=== PATIENT | female | born 1950 | race Hispanic/Latino ===

== ENCOUNTER 2019-10-08 19:53 | Inpatient (IN) | payer OTHER ==
[2019-10-08] MEDS ORDERED: ONDANSETRON 4 MG/2 ML VIAL IV PRN (21:02)
[2019-10-08] MEDS ORDERED: ACETAMINOPHEN 500 MG TAB PO PRN (21:02)
[2019-10-08] MEDS ORDERED: ALBUTEROL INHALER 60 PUFF/8 GM IH PRN (21:07)
[2019-10-08] MEDS ORDERED: NA CHLORIDE 0.9% 1,000 ML IV SCH (22:00)
[2019-10-09] MEDS: dexAMETHasone 10 MG/ML VIAL IV SCH ×3 (00:22→17:16)
[2019-10-09] MEDS ORDERED: ENOXAPARIN 40 MG/0.4 ML SQ SCH (02:00)
[2019-10-09 03:50] VITALS: BMI 23.6
[2019-10-09 06:11] LABS: Absolute Lymphocytes (CBC) 0.5 K/uL (0.7-4.9); Basophils % 0.1 % (0-1.3); Hematocrit 40.1 % (36.0-45.0); MPV 9.4 fL (7.6-11.3); RBC Red Blood Cell Count 4.92 M/uL (3.86-4.86)
[2019-10-09] MEDS: ZINC SULFATE 220 MG CAP PO SCH ×2 (07:55→20:18)
[2019-10-09] MEDS: ASCORBIC ACID 500 MG TABLET PO SCH (07:55)
[2019-10-09 08:00] LABS: Albumin 2.5 g/dL (3.4-5.0); Bilirubin Total 0.6 mg/dL (0.2-1.0); Ferritin 703.3 ng/mL (8-388); Magnesium 2.3 mg/dL (1.8-2.4); Protein, Total 6.9 g/dL (6.4-8.2)
[2019-10-09] MEDS: FUROSEMIDE 20 MG/ 2ML VIAL IV SCH (08:03)
--- NOTE | 2019-10-09 08:28 | P.HP ---
Certification for Inpatient Patient admitted to: Inpatient With expected LOS: >2 Midnights Patient will require the following post-hospital care: None Practitioner: I am a practitioner with admitting privileges, knowledge of patient current condition, hospital course, and medical plan of care. Services: Services provided to patient in accordance with Admission requirements found in Title 42 Section 412.3 of the Code of Federal Regulations Patient History Date of Service: 10/08/19 Reason for admission: COVID-19 pneumonia History of Present Illness: Patient is a 69-year-old female who has been sick for the last 48-72 hr. Her daughter was diagnose with COVID-19 pneumonia a few days prior to her being sick. She had gone to the emergency room as she was not getting better in [place], [place]. They did not have any beds available so she was transferred were facility because she was hypoxic. She was started on nebs, steroids, and antibiotics. she is short of breath and that the 8 and we have gone up to 4 L on her oxygen. Will continue with the supportive care with albuterol inhaler, steroids, Zithromax, and O2 per protocol. Patient came turn her lay in the prone position if she is able to tolerate. She will be admitted to the hospital for inpatient hospitalization of COVID-19 pneumonia. She only has a history of hypothyroidism. Denies any significant medical issues. Allergies Penicillins Allergy (Verified 10/08/19 22:52) Hives/Rash - Past Medical/Surgical History Has patient received pneumonia vaccine in the past: No Diabetic: No -: hypothyroidism -: hysterectomy - Family History Father Family History: Reviewed- Non-Contributory - Social History Smoking Status: Never smoker Alcohol use: No CD- Drugs: No Caffeine use: Yes Place of Residence: Home Review of Systems 10-point ROS is otherwise unremarkable Physical Examination - Vital Signs Temperature: 98 F Blood Pressure: 158/77 Pulse: 58 Respirations: 22 Pulse Ox (%): 93 - Physical Exam General: Alert, In no apparent distress, Oriented x3 HEENT: Atraumatic, PERRLA, Mucous membr. moist/pink, EOMI, Sclerae nonicteric Neck: Supple, 2+ carotid pulse no bruit, No LAD, Without JVD or thyroid abnormality Respiratory: Diminished, Expiratory wheezes Cardiovascular: Regular rate/rhythm, Normal S1 S2, No murmurs Gastrointestinal: Normal bowel sounds, Soft and benign, Non-distended, No tenderness Musculoskeletal: No clubbing, No swelling, No tenderness Integumentary: No rashes Neurological: Normal gait, Normal speech, Normal strength at 5/5 x4 extr, Normal tone, Sensation intact, Cranial nerves 3-12 intact, Normal affect Lymphatics: No axilla or inguinal lymphadenopathy - Studies Laboratory Data (last 24 hrs) 10/09/19 05:38: Sodium 139, Potassium 4.0, BUN 12, Creatinine 0.66, Glucose 197 H, Phosphorus 3.0, Magnesium 2.3, Total Bilirubin 0.6, AST 24, ALT 40, Alkaline Phosphatase 73, Triglycerides 97, Cholesterol 154, HDL Cholesterol 33 L, Cholesterol/HDL Ratio 4.67 10/09/19 05:38: WBC 5.7, Hgb 14.1, Hct 40.1, Plt Count 331 Assessment & Plan - Plan 1. Continue with IV antibiotics 2. COVID-19 pneumonia 3. Repeat chest x-ray if symptoms are progressively worsening 4. O2 per protocol 5. Pulmonary consultation 6. Continue with albuterol inhaler therapy; IV dexamethasone; zinc and vitamin-C 7. O2 per protocol 8. Monitor cardiac status closely 9. Repeat labs including D-dimer, ferritin, and CRP and LFTs 10. GI and DVT prophylaxis Discharge Plan: Home Plan to discharge in: Greater than 2 days - Advance Directives Does patient have a Living Will: No Does patient have a Durable POA for Healthcare: No - Code Status/Comfort Care Code Status Assessed: Yes Code Status: Full Code Critical Care: No Time Spent Managing PTS Care (In Minutes): 45
--- NOTE | 2019-10-09 08:30 | P.PN ---
Subjective Date of Service: 10/09/19 Patient is somewhat improving. Still little tachypneic. She does state she feels a little bit better than last night. Continue with supportive care at this time. Appreciate Pulmonary recommendations. Review of Systems 10-point ROS is otherwise unremarkable Physical Examination - Vital Signs Temperature: 98 F Blood Pressure: 158/77 Pulse: 58 Respirations: 22 Pulse Ox (%): 93 - Physical Exam General: Alert, In no apparent distress, Oriented x3 HEENT: Atraumatic, PERRLA, EOMI Neck: Supple, JVD not distended Respiratory: Clear to auscultation bilaterally, Normal air movement Cardiovascular: Regular rate/rhythm, Normal S1 S2, No murmurs Gastrointestinal: Normal bowel sounds, Soft and benign, Non-distended, No tenderness Musculoskeletal: No clubbing, No swelling, No tenderness Integumentary: No rashes Neurological: Normal speech, Normal tone, Sensation intact, Cranial nerves 3-12 intact, Normal affect Lymphatics: No axilla or inguinal lymphadenopathy - Studies Laboratory Data (last 24 hrs) 10/09/19 05:38: Sodium 139, Potassium 4.0, BUN 12, Creatinine 0.66, Glucose 197 H, Phosphorus 3.0, Magnesium 2.3, Total Bilirubin 0.6, AST 24, ALT 40, Alkaline Phosphatase 73, Triglycerides 97, Cholesterol 154, HDL Cholesterol 33 L, Cholesterol/HDL Ratio 4.67 10/09/19 05:38: WBC 5.7, Hgb 14.1, Hct 40.1, Plt Count 331 Medications List Reviewed: Yes Assessment & Plan - Problems (Diagnosis) (1) Pneumonia due to COVID-19 virus Current Visit: Yes Status: Acute (2) Hypothyroidism Current Visit: Yes Status: Acute - Plan 1. Continue with IV antibiotics 2. COVID-19 pneumonia 3. Repeat chest x-ray if symptoms are progressively worsening 4. O2 per protocol 5. Pulmonary consultation 6. Continue with albuterol inhaler therapy; IV dexamethasone; zinc and vitamin-C 7. O2 per protocol 8. Monitor cardiac status closely 9. Repeat labs including D-dimer, ferritin, and CRP and LFTs 10. GI and DVT prophylaxis Discharge Plan: Home Plan to discharge in: Greater than 2 days - Advance Directives Does patient have a Living Will: No Does patient have a Durable POA for Healthcare: No - Code Status/Comfort Care Code Status: Full Code Time Spent Managing PTS Care (In Minutes): 25
[2019-10-09] MEDS ORDERED: CEFTRIAXONE/SWI 1gm 1 GM/10 ML SYR IVP SCH (09:00)
[2019-10-09] MEDS ORDERED: CEFTRIAXONE 1 GM/NS 50 ML 1 GM/50 ML BAG IV SCH (09:00)
--- NOTE | 2019-10-09 10:45 | P.CNS ---
Date of Consult: 10/09/19 Reason for Consult: Roberts virus pneumonia Chief Complaint: COVID-19 pneumonia History of Present Illness: Patient is 69 years of age has been sick for about 3 days transferred from another facility due to hypoxemia she is currently doing well but she does rich aturate off oxygen D-dimer is elevated patient has no fever Allergies Penicillins Allergy (Verified 10/08/19 22:52) Hives/Rash - Past Medical/Surgical History Diabetic: No -: hypothyroidism -: hysterectomy - Family History Father Family History: Reviewed- Non-Contributory - Social History Alcohol use: No CD- Drugs: No Caffeine use: Yes Place of Residence: Home Review of Systems is unable to be obtained Physical Examination Temp Pulse Resp BP Pulse Ox 98 F 58 22 H 158/77 H 93 10/09/19 08:30 10/09/19 08:30 10/09/19 08:30 10/09/19 08:30 10/09/19 08:30 General: Other (Due for) Laboratory Data (last 24 hrs) 10/09/19 05:38: Sodium 139, Potassium 4.0, BUN 12, Creatinine 0.66, Glucose 197 H, Phosphorus 3.0, Magnesium 2.3, Total Bilirubin 0.6, AST 24, ALT 40, Alkaline Phosphatase 73, Triglycerides 97, Cholesterol 154, HDL Cholesterol 33 L, Cholesterol/HDL Ratio 4.67 10/09/19 05:38: WBC 5.7, Hgb 14.1, Hct 40.1, Plt Count 331 - Problems (1) Pneumonia due to COVID-19 virus Current Visit: Yes Status: Acute Plan: Patient is 69 years of age admitted with possible pneumonia secondary to roberts virus chest x-ray today patient's blood pressure is elevated continue with steroids change to p.o. levofloxacin dose of IV Lasix possible discharge tomorrow evaluate for home O2 if needed
[2019-10-09] MEDS ORDERED: PNEUMOCOCCAL VACCINE 0.5 ML IMVAC ONE (13:00)
[2019-10-09] MEDS: ENOXAPARIN 40 MG/0.4 ML SQ SCH (17:16)
[2019-10-09] MEDS ORDERED: AZITHROMYCIN IV 500 MG in NA CHLORIDE 0.9% 250 ML IVPB SCH (18:00)
[2019-10-09] MEDS: GUAIFENESIN/CODEINE 5ML UCUP PO PRN (21:20)
[2019-10-10] MEDS: dexAMETHasone 10 MG/ML VIAL IV SCH ×2 (00:12→08:14)
[2019-10-10] MEDS: ENOXAPARIN 40 MG/0.4 ML SQ SCH ×2 (05:16→17:40)
--- NOTE | 2019-10-10 08:07 | RAD REPORT ---
EXAM DESCRIPTION: RAD - Chest Single View - 10/10/2019 7:43 am CLINICAL HISTORY: Pneumonia COMPARISON: None TECHNIQUE: AP portable chest image was obtained 10/10/2019 7:43 am . FINDINGS: Lung volumes are low. Patient has bilateral airspace infiltrates primarily in a peripheral distribution. In the current clinical environment, a COVID-19 pneumonia would be suspected. Heart an d vasculature are normal. No measurable pleural effusion and no pneumothorax. No acute bony abnormali ty seen. No acute aortic findings suspected. IMPRESSION: Bilateral pneumonia pattern. The bilateral peripheral airspace opacification pattern is suspicious for COVID-19 pneumonia in the [facility] clinical environment.
[2019-10-10] MEDS: dexAMETHasone 4 MG/ML VIAL IV SCH ×2 (08:14→17:39)
[2019-10-10] MEDS: ZINC SULFATE 220 MG CAP PO SCH ×2 (08:14→21:52)
[2019-10-10] MEDS: ASCORBIC ACID 500 MG TABLET PO SCH (08:14)
[2019-10-10] MEDS: FUROSEMIDE 20 MG/ 2ML VIAL IV SCH ×2 (08:14→17:39)
--- NOTE | 2019-10-10 11:00 | P.PN ---
Subjective Date of Service: 10/10/19 Chief Complaint: COVID-19 pneumonia Subjective: Improving (Patient is still feeling very weak hypoxic his significant desaturation) Review of Systems General: Weakness Respiratory: Shortness of Breath Physical Examination - Vital Signs Temperature: 98.6 F Blood Pressure: 137/65 Pulse: 48 Respirations: 22 Pulse Ox (%): 93 - Physical Exam General: Alert, Mild distress - Studies Medications List Reviewed: Yes Assessment & Plan - Problems (Diagnosis) (1) Pneumonia due to COVID-19 virus Current Visit: Yes Status: Acute Plan: Patient admitted with the [place] virus pneumonia still hypoxic labs reviewed increase Lasix may need home oxygen patient is a little bradycardic Discharge Plan: Home Plan to discharge in: 24 Hours
[2019-10-10] MEDS: GUAIFENESIN/CODEINE 5ML UCUP PO PRN (21:52)
[2019-10-11] MEDS: dexAMETHasone 4 MG/ML VIAL IV SCH ×3 (00:29→16:00)
[2019-10-11] MEDS: ENOXAPARIN 40 MG/0.4 ML SQ SCH ×2 (05:29→17:02)
[2019-10-11] MEDS: FUROSEMIDE 20 MG/ 2ML VIAL IV SCH ×2 (07:14→16:00)
[2019-10-11] MEDS: ZINC SULFATE 220 MG CAP PO SCH (07:14)
[2019-10-11] MEDS: ASCORBIC ACID 500 MG TABLET PO SCH (07:14)
--- NOTE | 2019-10-11 12:56 | P.PN ---
Subjective Date of Service: 10/11/19 Chief Complaint: COVID-19 pneumonia Subjective: Improving (Patient is clinically improving will qualify for home O2) Review of Systems General: Weakness Respiratory: Shortness of Breath Physical Examination - Vital Signs Temperature: 96.9 F Blood Pressure: 119/68 Pulse: 48 Respirations: 16 Pulse Ox (%): 95 - Studies Medications List Reviewed: Yes Assessment & Plan - Problems (Diagnosis) (1) Pneumonia due to COVID-19 virus Current Visit: Yes Status: Acute Plan: Patient is improving plan for discharge today own home O2 telephone visit from in the knee in 2 weeks
--- NOTE | 2019-10-11 14:35 | P.DS ---
Admission Date: 10/08/19 Discharge Date: 10/11/19 Primary Care Provider: Esther Disposition: DC HOME/HOME HEALTH CARE Discharge Condition: GOOD Reason for Admission: COVID-19 pneumonia Consultations: Pulmonary-Dr. Coppola Procedures: CXR: FINDINGS: Lung volumes are low. Patient has bilateral airspace infiltrates primarily in a peripheral distribution. In the current clinical environment, a COVID-19 pneumonia would be suspected. Heart and vasculature are normal. No measurable pleural effusion and no pneumothorax. No acute bony abnormality seen. No acute aortic findings suspected. IMPRESSION: Bilateral pneumonia pattern. The bilateral peripheral airspace opacification pattern is suspicious for COVID- 19 pneumonia in the current clinical environment. Medical Problem List: Dyspnea with hypoxia secondary to bilateral pneumonia with Positive COVID 19 infection Brief History of Present Illness: 69-year-old female presented to emergency room with increasing shortness of breath. Patient was tested positive prior to evaluation at [facility]. Patient was evaluated there and required hospitalization due to hypoxia. Patient was transferred to our facility to continue care due to capacity issues at [facility]. Hospital Course: Patient presented with hypoxia with bilateral pneumonia secondary to COVID 19 infection. Patient was transferred from [facility] to our facility due to capacity. The patient did well then the course of her stay. Patient was treated with IV steroids and oxygen. Patient was seen and evaluated by pulmonology. No further intervention was required. At discharge patient only requires about 1 L per nasal cannula. Patient appropriate. Pulmonology recommends discharge at this time. Patient will go home with oxygen to maintain sats above 93%. Patient will continue with incentive spirometer. Patient will continue with prednisone 10 mg 1 pill twice daily for 7 days. Patient will need a follow up with pulmonology in 1 week to monitor her progress. Home health and home oxygen will be provided at discharge. Patient will need to quarantine herself for at least 14 days. Patient will continue with CDC guidelines for COVID. Patient with underlying hypothyroidism. At discharge she will continue with her medications including levothyroxine 100 mcg daily. Vital Signs/Physical Exam: Temp Pulse Resp BP Pulse Ox 96.9 F 48 L 16 119/68 95 10/11/19 12:56 10/11/19 12:56 10/11/19 12:56 10/11/19 12:56 10/11/19 12:56 General: Alert, In no apparent distress, Oriented x3, Cooperative HEENT: Atraumatic Neck: Supple Respiratory: Other (Patient breathing appropriately. On nasal cannula 1 L) Cardiovascular: Normal pulses Neurological: Normal speech, Normal strength at 5/5 x4 extr, Normal tone, Normal affect Laboratory Data at Discharge: WBC 5.7 K/uL (4.3-10.9) 10/09/19 05:38 Hgb 14.1 g/dL (12.0-15.0) 10/09/19 05:38 Hct 40.1 % (36.0-45.0) 10/09/19 05:38 Plt Count 331 K/uL (152-406) 10/09/19 05:38 Sodium 139 mmol/L (136-145) 10/09/19 05:38 Potassium 4.0 mmol/L (3.5-5.1) 10/09/19 05:38 BUN 12 mg/dL (7-18) 10/09/19 05:38 Creatinine 0.66 mg/dL (0.55-1.3) 10/09/19 05:38 Glucose 197 mg/dL (74-106) H 10/09/19 05:38 Phosphorus 3.0 mg/dL (2.5-4.9) 10/09/19 05:38 Magnesium 2.3 mg/dL (1.8-2.4) 10/09/19 05:38 Total Bilirubin 0.6 mg/dL (0.2-1.0) 10/09/19 05:38 AST 24 U/L (15-37) 10/09/19 05:38 ALT 40 U/L (12-78) 10/09/19 05:38 Alkaline Phosphatase 73 U/L (45-117) 10/09/19 05:38 Triglycerides 97 mg/dL (<150) 10/09/19 05:38 Cholesterol 154 mg/dL (<200) 10/09/19 05:38 HDL Cholesterol 33 mg/dL (40-60) L 10/09/19 05:38 Cholesterol/HDL Ratio 4.67 10/09/19 05:38 Home Medications: RX: Levothyroxine [Synthroid*] 1 tab PO DAILY 10/10/19 RX: Albuterol Inhaler [Ventolin Inhaler*] 2 puff IH Q6H PRN #1 hfa.[email or web address] 10/11/19 RX: predniSONE [Deltasone*] 10 mg PO BID #14 tab 10/11/19 New Medications: RX: predniSONE [Deltasone*] 10 mg PO BID #14 tab RX: Albuterol Inhaler [Ventolin Inhaler*] 2 puff IH Q6H PRN #1 hfa.[email or web address] PRN Reason: Shortness Of Breath Patient Discharge Instructions: 1. Recommend follow up with PCP in 1 week to follow up this hospitalization. 2. Patient presented with hypoxia with bilateral pneumonia secondary to COVID 19 infection. Patient was transferred from [facility] to our facility due to capacity. The patient did well then the course of her stay. Patient was treated with IV steroids and oxygen. Patient was seen and evaluated by pulmonology. No further intervention was required. At discharge patient only requires about 1 L per nasal cannula. Patient appropriate. Pulmonology recommends discharge at this time. Patient will go home with oxygen to maintain sats above 93%. Patient will continue with incentive spirometer. Patient will continue with prednisone 10 mg 1 pill twice daily for 7 days. Patient will need a follow up with pulmonology in 1 week to monitor her progress. Home health and home oxygen will be provided at discharge. Patient will need to quarantine herself for at least 14 days. Patient will continue with CDC guidelines for COVID. 3. Patient with underlying hypothyroidism. At discharge she will continue with her medications including levothyroxine 100 mcg daily. Diet: AHA Activity: Ad sabrina Time spent managing pt's care (in minutes): 55
[2019-10-11 15:39] VITALS: BP 148/79; TEMP 97.5
[2019-10-11 20:31] VITALS: O2SAT 95
== END 2019-10-11 20:15 | disposition home health service (06) | DRG 177 ==
LOC: 4TH 19:53
PROVIDERS: ADMIT Family Medicine; ATTEND Hospitalist
DX: U07.1 COVID-19 (principal); J12.89 Other viral pneumonia; E03.9 Hypothyroidism, unspecified; Z28.21 Immunization not carried out because of patient refusal
CPT/HCPCS: 36415; 71045; 80053; 80061; 82728; 83605; 83615; 83735; 83880; 84100; 85025; 85379; 86140; 94760; J0456; J0696; J1100; J1650; J1940; J7030